=== PATIENT | male | born 1990 ===

== ENCOUNTER 2017-01-16 07:00 | Emergency (ER) | payer MEDICAID ==
[2017-01-16 07:33] VITALS: BP 132/72; PULSE 72; RESP 18; TEMP 97.1; O2SAT 98; BMI 26.6
--- NOTE | 2017-01-16 07:35 | ED PDOC ---
HPI: Dental Pain/Injury Time Seen by Provider: 01/16/17 07:11 Chief Complaint (Nursing): Dental Pain Chief Complaint (Provider): Dental Pain History Per: Patient History/Exam Limitations: no limitations Onset/Duration Of Symptoms: Days (x3 days) Current Symptoms Are (Timing): Still Present Additional Complaint(s): 26 y/o male who presents to the emergency department with a complaint of an upper left tooth ache x3 days. Associated with mild swelling of the cheek. Reports taking ibuprofen for the relief of pain. Denies nausea, vomiting, diarrhea, sore throat, numbness, tingling or discharge from the area. PMD: None. Past Medical History Reviewed: Historical Data, Nursing Documentation, Vital Signs - Medical History PMH: No Chronic Diseases - Surgical History Surgical History: No Surg Hx - Family History Family History: States: Unknown Family Hx - Immunization History Hx Tetanus Toxoid Vaccination: Yes - Home Medications Home Medications: Ambulatory Orders Medication Instructions Recorded Ciprofloxacin/Ciprofloxa HCl 500 mg PO DAILY #10 ter 04/06/16 [Ciprofloxacin] Phenazopyridine HCl [Pyridium] 100 mg PO BID #6 tablet 04/06/16 Clindamycin [Cleocin] 300 mg PO QID 10 Days 01/16/17 Ibuprofen [Motrin] 600 mg PO TID 7 Days 01/16/17 - Allergies Allergies/Adverse Reactions: Allergies Allergy/AdvReac Type Severity Reaction Status Date / Time No Known Allergies Allergy Verified 01/16/17 07:31 Review of Systems Constitutional: Negative for: Weakness Eyes: Negative for: Vision Change ENT: Positive for: Mouth Swelling (Upper left tooth ache and mild swelling of the cheek). Negative for: Ear Pain, Throat Pain, Other (Discharge, numbness or tingling within the dental region) Respiratory: Negative for: Cough, Shortness of Breath Gastrointestinal: Negative for: Nausea, Vomiting, Diarrhea Musculoskeletal: Negative for: Neck Pain Skin: Negative for: Rash Neurological: Negative for: Weakness Physical Exam - Reviewed Nursing Documentation Reviewed: Yes Vital Signs Reviewed: Yes - Physical Exam Appears: Positive for: Non-toxic, No Acute Distress Head Exam: Positive for: ATRAUMATIC, NORMOCEPHALIC Skin: Positive for: Normal Color, Warm, Dry ENT: Positive for: Other (Upper left incisor chipped and tender. No abscess noted. No erythema. No tongue or gum swelling/erythema). Negative for: Nasal Congestion, Pharyngeal Erythema, Tonsillar Exudate Neck: Positive for: Normal, Painless ROM, Supple Cardiovascular/Chest: Positive for: Regular Rate, Rhythm. Negative for: Edema Respiratory: Positive for: Normal Breath Sounds. Negative for: Crackles Neurologic/Psych: Positive for: Alert, Oriented - Progress ED Course And Treament: 800: Stable. AAOx3. Pain free. Tolerated PO. Fu with dentist. Medical Decision Making Medical Decision Making: Time: 7:11 Initial impression: Dental Pain Initial plan: Toradol 10 mg IM Time: 7:33 Upon provider reevaluation patient is feeling better, is medically stable, and requires no further treatment in the ED at this time. Patient will be discharged home with Rx for Cleocin 300 mg and Motrin 600 mg Counseling was provided and all questions were answered regarding diagnosis and need for follow up with referred doctor. There is agreement to discharge plan. Return if symptoms persist or worsen. Clinical Impression: Dental Caries Scribe Attestation: Documented by Adilia Collins, acting as a scribe for Tio Villa MD. Provider Scribe Attestation: All medical record entries made by the Scribe were at my direction and personally dictated by me. I have reviewed the chart and agree that the record accurately reflects my personal performance of the history, physical exam, medical decision making, and the department course for this patient. I have also personally directed, reviewed, and agree with the discharge instructions and disposition. Disposition - Clinical Impression Clinical Impression: Dental caries - Patient ED Disposition Is Patient to be Admitted: No Counseled Patient/Family Regarding: Diagnosis, Need For Followup, Rx Given - Disposition Referrals: [facility] [Outside] - 01/18/17 Disposition: Routine/Home Disposition Time: 07:33 Condition: STABLE Additional Instructions: Return if not better in 3 days. See a dentist in 3 days. [address]. [address] - [address] We are proud to be one of the largest providers of high quality healthcare in the [facility] area. We offer a full range of medical and dental services for children, adults, and seniors including in-house specialists at our centers. 2. [facility] [address] [place], [place] - [address] Clinic Full Details [facility]. Fees: Medicaid, Self-PayWe provide dental services for children, adults and Seniors. This clinic is based on Sliding scale fees which are variable prices for products, services, or taxes based on a customer's ability to pay. Prescriptions: Clindamycin [Cleocin] 300 mg PO QID 10 Days Ibuprofen [Motrin] 600 mg PO TID 7 Days Instructions: Dental Caries (ED)
--- NOTE | 2017-01-16 07:38 | ED PDOC ---
HPI: Dental Pain/Injury Time Seen by Provider: 01/16/17 07:11 Chief Complaint (Nursing): Dental Pain Chief Complaint (Provider): Dental Pain History Per: Patient History/Exam Limitations: no limitations Onset/Duration Of Symptoms: Days (x3 days) Current Symptoms Are (Timing): Still Present Additional Complaint(s): 26 y/o male who presents to the emergency department with a complaint of an upper left tooth ache x3 days. Associated with mild swelling of the cheek. Reports taking ibuprofen for the relief of pain. Denies nausea, vomiting, diarrhea, sore throat, numbness, tingling or discharge from the area. PMD: None. Past Medical History Reviewed: Historical Data, Nursing Documentation, Vital Signs Vital Signs: Last Vital Signs Temp 97.1 F L 01/16/17 07:31 Pulse 72 01/16/17 07:31 Resp 18 01/16/17 07:31 BP 132/72 01/16/17 07:31 Pulse Ox 98 01/16/17 07:31 - Medical History PMH: No Chronic Diseases - Surgical History Surgical History: No Surg Hx - Family History Family History: States: Unknown Family Hx - Immunization History Hx Tetanus Toxoid Vaccination: Yes - Home Medications Home Medications: Ambulatory Orders Medication Instructions Recorded Ciprofloxacin/Ciprofloxa HCl 500 mg PO DAILY #10 ter 04/06/16 [Ciprofloxacin] Phenazopyridine HCl [Pyridium] 100 mg PO BID #6 tablet 04/06/16 Clindamycin [Cleocin] 300 mg PO QID 10 Days 01/16/17 Ibuprofen [Motrin] 600 mg PO TID 7 Days 01/16/17 - Allergies Allergies/Adverse Reactions: Allergies Allergy/AdvReac Type Severity Reaction Status Date / Time No Known Allergies Allergy Verified 01/16/17 07:31 Review of Systems ROS Statement: Except As Marked, All Systems Reviewed And Found Negative ENT: Positive for: Mouth Swelling (Upper left tooth ache and mild swelling of the cheek). Negative for: Throat Pain, Other (Discharge, numbness or tingling within the dental region) Gastrointestinal: Negative for: Nausea, Vomiting, Diarrhea Physical Exam - Reviewed Nursing Documentation Reviewed: Yes Vital Signs Reviewed: Yes - Physical Exam Appears: Positive for: Non-toxic, No Acute Distress Head Exam: Positive for: ATRAUMATIC, NORMOCEPHALIC Skin: Positive for: Normal Color, Warm, Dry ENT: Positive for: Other (Upper left incisor chipped and tender. No noted abscess) Cardiovascular/Chest: Positive for: Regular Rate, Rhythm. Negative for: Murmur Respiratory: Positive for: Normal Breath Sounds. Negative for: Accessory Muscle Use, Respiratory Distress Neurologic/Psych: Positive for: Alert, Oriented - ECG O2 Sat by Pulse Oximetry: 98 (RA) Pulse Ox Interpretation: Normal Medical Decision Making Medical Decision Making: Time: 7:11 Initial impression: Dental Pain Initial plan: Toradol 10 mg IM Scribe Attestation: Documented by Adilia Collins, acting as a scribe for Tio Villa MD. Provider Scribe Attestation: All medical record entries made by the Scribe were at my direction and personally dictated by me. I have reviewed the chart and agree that the record accurately reflects my personal performance of the history, physical exam, medical decision making, and the department course for this patient. I have also personally directed, reviewed, and agree with the discharge instructions and disposition.
== END 2017-01-16 08:10 | disposition home or self-care (01) ==
LOC: H.ER 07:00
DX: K02.9 Dental caries, unspecified (principal)